=== PATIENT | male | born 1990 | race American Indian/Alaskan Native ===

== ENCOUNTER 2017-07-26 14:47 | Emergency (ER) | payer MEDICAID ==
--- NOTE | 2017-07-26 19:46 | Emergency Department Report ---
ED Male HPI - General Chief complaint: Pain General Stated complaint: ABDOMINAL AND TESTICLES PAIN Time Seen by Provider: 07/26/17 18:39 Source: patient, family Mode of arrival: Ambulatory Limitations: No Limitations - History of Present Illness Initial comments: Patient here reported history of right inguinal hernia that he had repaired. He is now reporting that he has left groin pain and left testicular pain for months. Denies any STD or penile discharge. He said he is one partner. Left scrotal pain that is radiating into his left groin is 9 out of 10 and aching. Patient reports some chills but denies taken his temperature so he doesn't know if he has a fever. His temperature in triage was at 99.5. Denies any abdominal or back pain. Denies any nausea or vomiting. Denies any urinary burning, frequency or urgency. No [id number] medication taken for pain. MD Complaint: testicle pain, testicle swelling, groin pain Onset/Timin -: month(s) Location: left testicle, left inguinal region Radiation: none Severity: severe Severity scale (0 -10): 9 Quality: aching Consistency: intermittent Improves with: rest Worsens with: palpation, movement swelling (left testicular swelling and), other (chills). denies: discharge, mass, rash, urinary retention, blood in urine, dysuria, fever, nausea/vomiting, incontinence - Related Data Sexually active: Yes (1 partner) Previous Rx's Medication Instructions Recorded Last Taken Type Ciprofloxacin HCl [Cipro] 500 mg PO Q12H #20 tablet 07/26/17 Unknown Rx Ibuprofen [Motrin] 600 mg PO Q8H PRN #12 tablet 07/26/17 Unknown Rx Allergies Allergy/AdvReac Type Severity Reaction Status Date / Time No Known Allergies Allergy Unverified 07/26/17 15:58 ED Review of Systems ROS: Stated complaint: ABDOMINAL AND TESTICLES PAIN Other details as noted in HPI Comment: All other systems reviewed and negative Constitutional: chills ENT: denies: throat pain Respiratory: no symptoms reported Cardiovascular: denies: chest pain, palpitations, dyspnea on exertion, edema, syncope, paroxysmal nocturnal dyspnea Gastrointestinal: denies: abdominal pain, nausea, vomiting, diarrhea, constipation, hematemesis Genitourinary: testicular pain, other (groin pain, left). denies: urgency, dysuria, frequency, hematuria, discharge, testicular mass Musculoskeletal: denies: back pain, joint swelling, arthralgia, myalgia Skin: denies: rash Neurological: denies: headache, numbness, paresthesias, abnormal gait, vertigo ED Past Medical Hx - Past Medical History Previous Medical History?: Yes Additional medical history: right inquinal pain/hernia, Left inquinal hernia repair - Surgical History Past Surgical History?: Yes Additional Surgical History: Right inquinal hernia repair - Family History Family history: hypertension - Social History Smoking Status: Current Every Day Smoker Substance Use Type: Alcohol, Marijuana, Non Opiate Pain - Medications Home Medications: Home Medications Medication Instructions Recorded Confirmed Last Taken Type Ciprofloxacin HCl [Cipro] 500 mg PO Q12H #20 tablet 07/26/17 Unknown Rx Ibuprofen [Motrin] 600 mg PO Q8H PRN #12 tablet 07/26/17 Unknown Rx ED Physical Exam - General Limitations: No Limitations General appearance: alert, in no apparent distress - Head Head exam: Present: atraumatic, normocephalic, normal inspection - Eye Eye exam: Present: normal appearance, PERRL, EOMI Pupils: Present: normal accommodation - ENT ENT exam: Present: normal exam, normal orophraynx, mucous membranes moist, TM's normal bilaterally, normal external ear exam - Neck Neck exam: Present: normal inspection, full ROM. Absent: tenderness, meningismus, lymphadenopathy - Respiratory Respiratory exam: Present: normal lung sounds bilaterally. Absent: respiratory distress, wheezes, rales, chest wall tenderness, accessory muscle use - Cardiovascular Cardiovascular Exam: Present: regular rate, normal rhythm, normal heart sounds. Absent: systolic murmur, diastolic murmur - GI/Abdominal GI/Abdominal exam: Present: soft, normal bowel sounds. Absent: distended, tenderness, guarding, rebound, rigid, organomegaly, mass, bruit, pulsatile mass , hernia - exam: Present: testicular tenderness (left), scrotal swelling (left). Absent : normal inspection, urethral discharge, vertical testicular lie External exam: Present: swelling (left scrotal area), other (numbness to palpate the left scrotal area). Absent: normal external exam, erythema, lesions , lacerations, ecchymosis, bleeding - Expanded Exam Expanded Male exam: Absent: phimosis, paraphimosis, penile swelling, lesions, induration, erythema, perineal induration, balanitis, priapism exam: Testicular Tenderness: Left, Testicular Swelling: Left, Epididymal Tenderness: Left, Inguinal Lymphadenopathy: Left, Cremasteric Reflex Present: Left - Extremities Exam Extremities exam: Present: normal inspection, full ROM, normal capillary refill , other (no clubbing, cyanosis or edema. +2 pulses in all extremities. No neurovascular compromise). Absent: tenderness, pedal edema, joint swelling, calf tenderness - Back Exam Back exam: Present: normal inspection, full ROM. Absent: tenderness, CVA tenderness (R), CVA tenderness (L), muscle spasm, paraspinal tenderness, vertebral tenderness, rash noted - Neurological Exam Neurological exam: Present: alert, oriented X3, normal gait, reflexes normal. Absent: motor sensory deficit - Psychiatric Psychiatric exam: Present: normal affect, normal mood - Skin Skin exam: Present: warm, dry, intact, normal color. Absent: rash ED Course Vital Signs 07/26/17 15:58 Temperature 99.5 F Pulse Rate 91 H Respiratory 18 Rate Blood Pressure 153/93 O2 Sat by Pulse 99 Oximetry - Reevaluation(s) Reevaluation #1: 07/26/17 21:32 She received Rocephin 1 g IM to cover UTI and possible exposure to gonorrhea and azithromycin 1 g by mouth to cover chlamydia due to possible exposure. Patient with positive ultrasound for acute epididymitis. ED Medical Decision Making - Lab Data Lab Results 07/26/17 Range/Units 19:55 Urine Color Yellow (Yellow) Urine Turbidity Clear (Clear) Urine pH 5.0 (5.0-7.0) Ur Specific [place] 1.030 (1.003-1.030) Urine Protein 30 mg/dl (Negative) mg/dL Urine Glucose (UA) Neg (Negative) mg/dL Urine Ketones 80 (Negative) mg/dL Urine Blood Neg (Negative) Urine Nitrite Neg (Negative) Urine Bilirubin Neg (Negative) Urine Urobilinogen < 2.0 (<2.0) mg/dL Ur Leukocyte Esterase Lg (Negative) Urine WBC (Auto) 75.0 H (0.0-6.0) /HPF Urine RBC (Auto) 8.0 (0.0-6.0) /HPF U Epithel Cells (Auto) < 1.0 (0-13.0) /HPF Urine Mucus 1+ /HPF Urine CX sent Urine gonorrhea and chlamydia pending - Radiology Data Radiology results: report reviewed Patient testicular ultrasound reveals findings consistent with acute epididymitis on the left. No evidence for hydrocele or varicocele are present bilaterally. Blood flow to both testicles. - Medical Decision Making ED Course: He reports that he has left testicular pain and left inguinal pain. Physical finding for swelling to left scrotal area with tenderness to palpate. No rash or lesions to penile area. Patient does have positive left inguinal adenopathy. No hernia noted. Urinalysis revealed patient with large amount of leukocyte Estrace with elevated white blood cell ketones of 80. No hematuria positive protein in urine. Patient drank 3 cups of cranberry juice in emergency room without any nausea or vomiting. I instructed them that he is mildly dehydrated so he will need to increase his fluid intake to 2-3 L of fluid per day. Patient with ultrasound showing that he has acute epididymitis. Urinalysis and ultrasound results discussed the patient and I told him that is a high probability that he hydrated her has chlamydia or coronary gonorrhea due to epididymitis. That he has one partner and his partners in the room with them and she said that she does not have any symptoms. I told her she will need to go get tested at that clinic, health department on Friday. Patient was not having any penile discharge or urinary urgency, frequency or burning. She treated it Rocephin 1 g IM to cover gonorrhea and urinary tract infection and azithromycin 1 g by mouth to cover chlamydia. An culture sent and gonorrhea and chlamydia sent and are pending. Patient will be discharged home with prescription for ciprofloxacin and I discussed with him diagnosis and treatment plan and he voiced understanding. I instructed him that gonorrhea and chlamydia tests usually takes about 5 days to be resulted so he can return to medical records department with his ID to get results and also to follow up with [facility] for repeat STD testing. I encouraged him to practice safe sex until he knows what is resulted. Discharged home with prescription for ciprofloxacin and Motrin. He was given [place] 5/325 2 tablets in emergency room for testicular pain. Critical care attestation.: If time is entered above; I have spent that time in minutes in the direct care of this critically ill patient, excluding procedure time. ED Disposition Clinical Impression: Scrotal swelling, Testicular pain, left, Acute cystitis without hematuria, Mild dehydration, Epididymitis, left, STD (sexually transmitted disease) Protein in urine Qualifiers: Proteinuria type: unspecified Qualified Code(s): R80.9 - Proteinuria, unspecified Disposition: DC- TO HOME OR SELFCARE Is pt being admited?: No Does the pt Need Aspirin: No Condition: Stable Instructions: Epididymitis (ED), Testicle Pain (ED), Urinary Tract Infection in Men (ED), Dehydration (ED), Safe Sex (ED), Sexually Transmitted Diseases (ED) Additional Instructions: Please practice safe sex Please return to clinic health Department for STD check in 7-10 days Make sure your partner get checked for STD. Increase your fluid intake to 2-3 L of water per day. You were treated for gonorrhea and chlamydia in the emergency room. Please do not have sexual activity for the next 14 days. Read discharge instruction and sexual transmitted disease Prescriptions: Ciprofloxacin HCl [Cipro] 500 mg PO Q12H #20 tablet Ibuprofen [Motrin] 600 mg PO Q8H PRN #12 tablet PRN Reason: Pain Referrals: PRIMARY CARE [Primary Care Provider] - 3-5 Days [facility] [Outside] - 7-[address] [facility] [Outside] - 3-5 Days Forms: STI Treatment and Prevention, Accompanied Note, Work/School Release Form (ED)
[2017-07-26 20:11] LABS: Bilirubin,Urine NEG (Negative); Blood,Urine NEG (Negative); Ketones,Urine 80 mg/dL (Negative); Leukocyte Esterase,Urine LG (Negative); Mucus,Urine 1+ /HPF; Nitrite,Urine NEG (Negative); Urobilinogen,Urine < 2.0 mg/dL (<2.0)
--- NOTE | 2017-07-26 20:47 | Ultrasound Report ---
FINAL REPORT EXAM: US TESTICULAR DOPPLER COMP HISTORY: testicular pain. left TECHNIQUE: Ultrasound of scrotum PRIORS: None. FINDINGS: Examination of the testicles demonstrates both to be normal in size and normal and homogeneous in echogenicity with normal blood flow bilaterally. No focal abnormality is noted in either testicle. The right testicle measures 3.0 x 1.5 x 2.0 cm and the left measures 2.7 x 1.7 x 2.3 cm. Right epididymis appears normal in size and echogenicity with normal blood flow. No focal abnormality is noted. However, the left epididymis is enlarged, heterogeneous, and demonstrates hyperemia. Findings are consistent with left acute epididymitis. A small hydrocele is noted. No evidence for right hydrocele or varicoceles are present bilaterally. IMPRESSION: Findings consistent with acute epididymitis on the left.
[2017-07-26] MEDS: XYLOCAINE 1% MPF 5 mL INFILTRATI ONE (21:18)
[2017-07-26] MEDS: ROCEPHIN IM STA (21:18)
[2017-07-26] MEDS: ZITHROMAX PO ONE (21:29)
[2017-07-26] MEDS: NORCO 5/325 PO ONE (22:01)
[2017-07-26 22:24] VITALS: BP 130/90
== END 2017-07-26 22:23 | disposition home or self-care (01) ==
LOC: ED 14:47
DX: N30.00 Acute cystitis without hematuria (principal); E86.0 Dehydration; N45.1 Epididymitis; A64 Unspecified sexually transmitted disease; R80.9 Proteinuria, unspecified; F17.200 Nicotine dependence, unspecified, uncomplicated; F12.10 Cannabis abuse, uncomplicated
CPT/HCPCS: 81001; 87086; 87591; 93975; 96372; 99284; J0696